=== PATIENT | female | born 1935 | race Hispanic/Latino ===

== ENCOUNTER 2016-11-27 08:00 | Inpatient (IN) | payer MEDICARE ==
[2016-11-24 11:41] LABS: Basophils % (Auto) 0.5 % (0.0-1.8); Eosinophils % (Auto) 1.5 % (0.0-4.3); Hematocrit 34.5 % (30.3-42.9); Hemoglobin 11.2 gm/dl (10.1-14.3); Mean Corpuscular HGB Conc 32 % (30-34); Mean Corpuscular Hemoglobin 28 pg (28-32); Mean Corpuscular Volume 87 fl (79-97); Platelet Count 208 K/mm3 (140-440); Red Blood Count 3.98 M/mm3 (3.65-5.03); Red Cell Distribution Width 13.4 % (13.2-15.2); White Blood Count 8.1 K/mm3 (4.5-11.0)
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
[2016-11-24 11:55] LABS: INR 0.82 (0.87-1.13)
[2016-11-24 11:57] LABS: Anion Gap 14 mmol/L; BUN/Creatinine Ratio 26.25; Blood Urea Nitrogen 21 mg/dL (7-17); Calcium 10.3 mg/dL (8.4-10.2); Carbon Dioxide 26 mmol/L (22-30); Chloride 103.3 mmol/L (98-107); Glucose 68 mg/dL (65-100); Potassium 4.4 mmol/L (3.6-5.0); Sodium 139 mmol/L (137-145)
--- NOTE | 2016-11-27 07:40 | Anesthesia Day of Surgery ---
Anesthesia Day of Surgery - Day of Surgery Patient Examined: Yes Patient H&P Reviewed: Yes Patient is NPO: Yes
[~2016-11-27 08:00] MED LIST: AMIDATE IV ONE; ANCEF/STERILE WATER 2 GM/20 ML 2 GM/20 ML SYRINGE IV NR; DIPRIVAN 10 MG/ML IV ONE; GELFOAM TP ONE; HEPARIN 10,000 UNITS/10 ML ONE; MARCAINE 0.5% INFILTRATI ONE; NACL 0.9% 100 ML ONE; NACL 0.9% 1000 ML 1,000 ML IV SCH; NACL 0.9% 500 ML 500 ML ONE; NACL BACTERIOSTATIC INFILTRATI ONE; NEO SYNEPHRINE/NS Syringe(OR USE) IV ONE; PAPAVERINE ONE; PEPCID PO NR; PROTAMINE SULFATE ONE; QUELICIN ONE; RIFADIN ONE; SUBLIMAZE ONE; THROMBIN (BOVINE) TP ONE; VERSED IV NR; XYLOCAINE 1% 20 mL ONE; XYLOCAINE 1% MPF 5 mL ONE; XYLOCAINE MPF 2% ONE; ZEMURON IV ONE
[2016-11-27] MEDS ORDERED: ePHEDrine SULFATE ONE (09:11)
[2016-11-27] MEDS ORDERED: ROBINUL ONE ×2 (09:14→10:53)
[2016-11-27] MEDS ORDERED: MARCAINE 0.5% INFILTRATI ONE ×2 (09:25→09:59)
[2016-11-27] MEDS ORDERED: DECADRON ONE (09:30)
[2016-11-27] MEDS ORDERED: ZOFRAN ONE (09:30)
[2016-11-27] MEDS ORDERED: RIFADIN 600 MG in NACL 0.9% 50 ML IR ONE (09:33)
[2016-11-27] MEDS ORDERED: HEPARIN 10,000 UNITS/10 ML 2,000 UNIT in NACL 0.9% 500 ML 500 ML IR ONE (09:33)
[2016-11-27] MEDS ORDERED: NACL 0.9% IR ONE (09:59)
[2016-11-27] MEDS ORDERED: NACL 0.9% 1000 ML 1,000 ML ONE (10:56)
--- NOTE | 2016-11-27 11:34 | Operative Report ---
Operative Report Operative Report: Date of procedure: 11/27/2016 Pre-operative diagnosis: Asymptomatic Left Carotid Artery Stenosis Post-operative diagnosis: Same Procedure(s): 1. Left Carotid Endarterectomy With Patch Angioplasty 2. Intraoperative Completion Duplex Surgeon: Sanjiv Ochoa MD Marine Machinist: None Anesthesia: General Endotracheal Anesthesia EBL: Minimal Findings: Patient with near occlusion of her internal carotid artery with an isolated plaque in the left internal carotid artery approximately 2-1/2 cm from the bifurcation. Specimen: Left Carotid Plaque Counts: Correct Complications: None Condition: Stable Indication: The patient is an 81-year-old female who was undergoing a CT scan of her neck for evaluation of her parathyroids. There was an incidental finding of a greater than 80% stenosis of left internal carotid artery. She was sent to me for evaluation. Although she had no symptoms given the degree of stenosis it was felt that she would benefit from a carotid endarterectomy. She had cardiac clearance was clear for the procedure. She was given the risks, benefits, and alternative procedures and consented to procedure. Description of Procedure: The patient was brought to the operating room and laid in supine position. After general endotracheal anesthesia was achieved the patient was placed in beachchair position with her head elevated and turned slightly to the right. The patient's neck and chest were prepped and draped in normal fashion. An oblique incision was then created along the anterior border of the sternocleidomastoid. The incision was then carried down to the facial vein using sharp dissection. The facial vein was then dissected out circumferentially, suture ligated and divided. The dissection was then carried down to the common carotid using sharp dissection. The common carotid artery was dissected out circumferentially taking care to avoid the vagus nerve which was identified and avoided. The artery was then controlled with a large vessel loop. The dissection was carried up along the external carotid and the superficial thyroid artery was identified dissected out circumferentially and controlled with a 2-0 silk. The external carotid was dissected out and controlled a small vessel loop. I then dissected out the internal carotid artery well above the plaque which was identified by a change in hue of the artery from yellow to blue and palpation of the artery over a right angle. I controlled the internal carotid artery with a small vessel and at this point the patient was systemically heparinized with heparin IV. Once the heparin had circulated for 3 minute I clamped the internal carotid artery followed by the common carotid and then the external Carotid artery. I created an arteriotomy extending from the common carotid into the internal carotid, well above the plaque, using an 11 blade and Sexton scissors. I then flashed the internal carotid artery to check for adequate backbleeding. Once ensure there was adequate backbleeding reclamped the artery and used a Kerby blade to dissect the plaque away from the artery. I used a right angle to continue the dissection of this plane from lateral to medial and then divided the plaque using Sexton scissors. I then trimmed the plaque proximally using Sexton and then teased the plaque away from the distal endpoint insuring that there were no areas of dissection or intimal flaps. These plaque forceps to remove all loose debris and then flushed the artery with heparinized saline. I then closed the artery using the Dacron patch and two 6-0 Prolenes in running fashion. Prior to completing the closure I flushed all arteries to remove all loose debris and then flushed the artery with heparinized saline. I then completed the closure in an flashed the internal carotid, reclamped and then removed the clamp from the common carotid followed by the external carotid and allowed any loose debris to flush into the external carotid. I then removed the clamp from the internal carotid artery. Hemostasis was achieved with repair sutures with 6-0 Prolene in interrupted fashion and a combination of direct pressure with Quick Clot. Once hemostasis was achieved I performed an intraoperative duplex that demonstrated no evidence of dissection and normalization of internal carotid velocity. I then anesthetized the wound with Exparel and closed in 2 layers using a 3-0 Vicryl in running in the deep dermal layer and a 4-0 Monocryl in running in the subcuticular layer and dressed it with the Surgiseal. The patient tolerated the procedure well all sponge needle and instrument counts were correct the patient was taken to the recovery area in stable condition.
[2016-11-27] MEDS ORDERED: D50W (25GM) Syringe IV PRN (11:35)
[2016-11-27] MEDS ORDERED: NORCO 5/325 PO PRN (11:35)
[2016-11-27] MEDS ORDERED: MORPHINE IV PRN (11:35)
[2016-11-27] MEDS ORDERED: NIPRIDE 50 MG in D5W 248 ML IV SCH (12:00)
[2016-11-27] MEDS ORDERED: NACL 0.9% 1000 ML 1,000 ML IV SCH (12:00)
[2016-11-27] MEDS ORDERED: INTROPIN DRIP 800 MG/D5W 250 ML 800 MG/250 ML BAG IV SCH (12:00)
[2016-11-27] MEDS ORDERED: DILAUDID IV PRN (12:10)
[2016-11-27] MEDS ORDERED: DILAUDID ONE (12:18)
--- NOTE | 2016-11-27 14:04 | Admit Criteria Form ---
Admission Criteria Documentation: AMBULATORY SURGERY EXCEPTION CRITERIA Ambulatory Surgery Exception Criteria ( Place 'X' for any and all applicable criteria): Surgery or procedure performed on ambulatory basis may require inpatient stay for[A] ANY ONE of the following(1)(2)(3)(4)(5)(6)(7)(8)(9): [X] I. A preoperative situation, condition, or finding that warrants inpatient stay as indicated by ANY ONE of the following: [] a) Inpatient care needed because of severity of a disease or condition rather than the surgery (eg, severe cardiac or respiratory disease, severe infection) (15) (16 ) (17) (18) [] b) Emergent procedure (eg, angioplasty for acute ischemia)(19) [] c) Complex surgical approach or situation as indicated by ANY ONE of the following(3): [] i) Open approach needed instead of usual endoscopic, transcatheter, or other less invasive procedure [] ii) Difficult approach because of previous operation [] iii) Airway monitoring required after open neck procedures(20)(21) [] iv) Large mass requiring unusually extensive dissection [] v) Additional complicating feature requiring inpatient care (eg, drain management)(22(23): [X] d) Major surgery in a pt with high anesthetic risk as indicated by ANY ONE of the following (2)(3)(5)(7)(8): [X] i) ASA risk class III or higher (severe systemic disease impairing function) [D] [] ii) Advanced age (eg, older than 85 years)(14)(24) [] iii) Symptomatic heart failure(25) [] iv) Symptomatic asthma or COPD(8)(21) [] v) Morbid obesity with hemodynamic or respiratory problems(20)( 21)(26)(27) [] vi) Obstructive sleep apnea(20)(21) [] vii) Former premature infants who are younger than 60 weeks [] viii) High risk for severe postoperative abnormalities (eg, severe postoperative hypocalcemia after parathyroidectomy for severe hyperparathyroidism)(27)( 28) [] ix) Unstable angina(25) [] e) Drug-related risk requiring inpatient stay as indicated by ANY ONE of the following(5)(10)(14)(32)(33) [] i) Procedure requires discontinuing drugs or other therapy (eg , antiarrhythmic medication, antiseizure medication), which necessitates inpatient observation or treatment.(18)(31) [] ii) Major surgery and high risk drug use as indicated by ANY ONE of the following: [] 1) Active abuse of cocaine or similar drug [] 2) Monoamine oxidase inhibitor use [] 3) Other drug identified as posing risk [] f) Inadequate outpatient care situation as indicated by ANY ONE of the following(5)(10)(14)(32)(33) [] i) Patient lives remote from medical facility and procedure has urgent complication potential, and temporary nearby residence cannot be arranged [] ii) Patient will have postprocedure incapacitation and inadequate assistance at home, or alternative level of care cannot be arranged. [] iii) Patient will have long general anesthesia or procedure side effect resolution time, and competent person to stay with patient on first postoperative night at home or alternative level of care cannot be arranged. []iv) Other inadequate outpatient situation that cannot be handled by other means [] II. A perioperative event, condition, or finding that warrants inpatient stay as indicated by ANY ONE of the following (1)(2)(3): [] a) Inadequate physiologic recovery: cardiovascular, respiratory, or hemodynamic status not normal or near preoperative baseline(18) [] b) Hemodynamic instability [] c) Patient not alert with near normal or baseline mental status [] d) Temperature not normal or as expected and not appropriate for outpatient treatment of condition [] e) Ambulatory or appropriate activity level status not yet achieved post procedure [E](34)(35)(36) [] f) Operative site not appropriate (eg, unexpected or excessive drainage or bleeding) [] g) Postoperative effects not resolved or adequately managed (eg, significant pain or vomiting not appropriate for outpatient or next level of care)(10)(12) [] h) Complicating features requiring inpatient care as indicated by ANY ONE of the following(37): [] i) Severe complications of procedure (eg, bowel injury, airway compromise, vascular injury,severe hemorrhage) [] ii) Extensive (eg, dissection far beyond usual scope of procedure ) or prolonged (eg, 120 minutes beyond usual) surgery needed requiring inpatient postoperative care [] iii) Conversion to an open or complex procedure that requires inpatient care (eg, open vs laparoscopic cholecystectomy, abdominal vs vaginal hysterectomy)(38) [] iv) Comorbid condition or test result identified during or post procedure that requires inpatient care (7) [] v) Malignant hyperthermia(30) [] vi) Other complicating feature requiring inpatient care(22)(23) Inpatient stay may be needed until ALL of the following are present (1)(2)(3)(4) (5)(6)(10)(14)(33)(40): []a) Physiologic recovery: cardiovascular, respiratory, and hemodynamic status normal or near preoperative baseline []b) Hemodynamic stability []c) Patient alert, with near normal or baseline mental status []d) Temperature appropriate: patient afebrile or temperature appropriate for outpt treatment of condition []e) Activity level appropriate: ambulatory or appropriate activity level post procedure []f) Operative site appropriate as indicated by ALL of the following: []i) Site dry or with expected drainage []ii) Any blood noted is as expected for procedure. []g) Postoperative effects resolved or managed as indicated by ALL of the following: []i) Pain management appropriate for outpatient (or next level of) care(10) []ii) Minimal nausea and vomiting: if present, successfully treated with oral medication(12) []iii) Headache, dizziness, or drowsiness (if present) are mild. []h) Voiding status acceptable as indicated by ANY ONE of the following: []i) Voiding spontaneously []ii) No voiding but instructions given for follow-up in 6 to 8 hours []iii) Urinary catheter in place, and instructions given for follow-up []i) Complicating features requiring inpatient care manageable at a lower level of care(37) []j) Comorbid conditions manageable at a lower level of care(37) The original [employer] content created by [employer] has been revised. The portions of the content which have been revised are identified through the use of italic text or in bold, and [facility] [employer] has neither reviewed nor approved the modified material. All other unmodified content is copyright [employer]. Please see references footnoted in the original [employer] edition 2016 Admission Criteria Met: Yes
[2016-11-27] MEDS: ANCEF/NS 1 GM/50 ML 1 GM/50 ML BAG IV SCH ×2 (15:30→23:43)
[2016-11-27] MEDS: NOVOLOG SUB-Q SCH ×2 (21:22→21:30)
[2016-11-27] MEDS: GLUCOPHAGE PO SCH (21:30)
[2016-11-27] MEDS ORDERED: NON-FORMULARY (Omeprazole [Omeprazole] 20 MG) PO SCH (22:00)
[2016-11-27] MEDS ORDERED: LEVEMIR SUB-Q SCH (22:00)
[2016-11-27] MEDS ORDERED: NON-FORMULARY (Insulin Glargine 20 UNIT) SUB-Q SCH (22:00)
[2016-11-27] MEDS ORDERED: PROTONIX PO SCH (22:00)
[2016-11-27] MEDS: COLACE PO SCH (23:31)
[2016-11-28] MEDS ORDERED: NORCO 5/325 ONE (02:00)
[2016-11-28] MEDS: NOVOLOG SUB-Q SCH ×2 (08:33→12:11)
[2016-11-28] MEDS: GLUCOPHAGE PO SCH (08:34)
--- NOTE | 2016-11-28 09:23 | Progress Note ---
Subjective Date of service: 11/28/16 Principal diagnosis: carotid stenosis left Interval history: Pt seen on post-op day 1, sitting in chair at bedside, not yet ambulating, comfortable, satisfied with anesthesia provided. Objective - Constitutional Vitals: Vital Signs - 12hr 11/27/16 11/27/16 11/28/16 22:00 23:00 00:00 Temperature 99.0 F 98.7 F 98.5 F Pulse Rate 93 H 80 84 Pulse Rate [ Left] Respiratory 16 16 15 Rate Blood Pressure 129/56 115/60 118/56 O2 Sat by Pulse 97 99 97 Oximetry 11/28/16 11/28/16 11/28/16 01:00 01:06 01:11 Temperature 97.8 F Pulse Rate 91 H 89 Pulse Rate [ Left] Respiratory 16 14 Rate Blood Pressure 127/60 127/60 O2 Sat by Pulse 97 100 100 Oximetry 11/28/16 11/28/16 11/28/16 01:21 01:31 01:41 Temperature Pulse Rate 99 H 99 H 105 H Pulse Rate [ Left] Respiratory 19 19 21 Rate Blood Pressure 127/60 127/60 127/60 O2 Sat by Pulse Oximetry 11/28/16 11/28/16 11/28/16 01:51 02:00 02:11 Temperature 97.0 F L Pulse Rate 88 93 H 88 Pulse Rate [ Left] Respiratory 17 14 17 Rate Blood Pressure 127/60 106/42 127/60 O2 Sat by Pulse 97 98 98 Oximetry 11/28/16 11/28/16 11/28/16 02:21 02:31 02:41 Temperature Pulse Rate 92 H 93 H 89 Pulse Rate [ Left] Respiratory 17 15 16 Rate Blood Pressure 127/60 127/60 127/60 O2 Sat by Pulse 99 100 97 Oximetry 11/28/16 11/28/16 11/28/16 02:51 03:00 03:11 Temperature Pulse Rate 90 92 H 91 H Pulse Rate [ Left] Respiratory 15 15 16 Rate Blood Pressure 127/60 104/46 104/46 O2 Sat by Pulse 98 98 99 Oximetry 11/28/16 11/28/16 11/28/16 03:14 03:21 03:31 Temperature Pulse Rate 89 86 87 Pulse Rate [ Left] Respiratory 17 16 12 Rate Blood Pressure 104/46 104/46 104/46 O2 Sat by Pulse 97 97 98 Oximetry 11/28/16 11/28/16 11/28/16 03:41 03:51 04:00 Temperature Pulse Rate 86 87 86 Pulse Rate [ Left] Respiratory 14 15 16 Rate Blood Pressure 104/46 104/46 104/46 O2 Sat by Pulse 98 97 96 Oximetry 11/28/16 11/28/16 11/28/16 04:11 04:21 04:27 Temperature 97.8 F Pulse Rate 82 85 88 Pulse Rate [ Left] Respiratory 16 9 L 16 Rate Blood Pressure 101/45 101/45 101/45 O2 Sat by Pulse 98 97 97 Oximetry 11/28/16 11/28/16 11/28/16 04:30 04:31 04:41 Temperature Pulse Rate 88 87 Pulse Rate [ 87 Left] Respiratory 14 15 11 L Rate Blood Pressure 101/45 101/45 O2 Sat by Pulse 100 97 97 Oximetry 11/28/16 11/28/16 11/28/16 04:51 05:00 05:11 Temperature Pulse Rate 84 84 85 Pulse Rate [ Left] Respiratory 14 13 9 L Rate Blood Pressure 101/45 106/47 106/47 O2 Sat by Pulse 97 97 97 Oximetry 11/28/16 11/28/16 11/28/16 05:21 05:31 05:41 Temperature Pulse Rate 84 84 87 Pulse Rate [ Left] Respiratory 13 16 15 Rate Blood Pressure 101/45 101/45 101/45 O2 Sat by Pulse 96 94 91 Oximetry 11/28/16 11/28/16 11/28/16 05:51 06:00 06:11 Temperature Pulse Rate 93 H 90 81 Pulse Rate [ Left] Respiratory 14 15 14 Rate Blood Pressure 106/47 112/48 112/48 O2 Sat by Pulse 100 100 99 Oximetry 11/28/16 11/28/16 11/28/16 06:21 06:31 06:38 Temperature 97.8 F Pulse Rate 83 80 Pulse Rate [ Left] Respiratory 20 16 Rate Blood Pressure 112/48 112/48 O2 Sat by Pulse 100 98 Oximetry 11/28/16 11/28/16 11/28/16 06:41 06:51 07:09 Temperature Pulse Rate 84 86 82 Pulse Rate [ Left] Respiratory 15 13 23 Rate Blood Pressure 112/48 112/48 O2 Sat by Pulse 92 100 96 Oximetry 11/28/16 11/28/16 11/28/16 07:11 07:21 07:31 Temperature Pulse Rate 79 70 82 Pulse Rate [ Left] Respiratory 19 16 14 Rate Blood Pressure 106/38 106/38 O2 Sat by Pulse 100 93 100 Oximetry 11/28/16 11/28/16 11/28/16 07:41 07:51 08:01 Temperature Pulse Rate 82 88 92 H Pulse Rate [ Left] Respiratory 12 13 12 Rate Blood Pressure 106/38 106/38 135/116 O2 Sat by Pulse 100 100 Oximetry - Labs CBC & Chem 7: 11/24/16 11:20 11/24/16 11:20 Labs: Abnormal lab results 11/27/16 11/27/16 11/27/16 Range/Units 11:34 16:50 21:12 POC Glucose 107 H 151 H 194 H (70-105) 11/28/16 Range/Units 05:51 POC Glucose 152 H (70-105)
--- NOTE | 2016-11-28 09:28 | Vascular Lab Report ---
INTRAOPERATIVE CAROTID ARTERY DUPLEX Reason for exam: Completion of carotid endarterectomy Comments on the left: The common and internal carotid arteries are patent without evidence of intraluminal irregularities. Flow velocities appear to be appropriate. No obvious technical defects at the endarterectomy site appreciated. Impression: No obvious technical imperfections at the endarterectomy site.
[2016-11-28] MEDS ORDERED: COZAAR PO SCH (10:00)
[2016-11-28] MEDS ORDERED: PLAVIX PO SCH (10:00)
[2016-11-28] MEDS ORDERED: EFFEXOR XR PO SCH (10:00)
[2016-11-28] MEDS: COLACE PO SCH (10:02)
--- NOTE | 2016-11-28 11:06 | Progress Note ---
Assessment and Plan Pt doing well post-op. Check RA pulse ox if okay will d/c O2. Increase act. if tolerated then will d/c home this afternoon. D/c instructions given to the pt at the bedside. Rx Plavix and [place]. F/u 2 wks. - Patient Problems (1) Carotid stenosis Current Visit: Yes Status: Acute Qualifiers: Laterality: L Subjective Date of service: 11/28/16 Principal diagnosis: carotid stenosis left Interval history: Pt sleeping, but easily arousable. C/o mild incisional discomfort and mild throat irritation (likely from ET tube). OOB to BR with difficulty. Coughs occasional (unchanged from prior to surgery). Denies difficulty swallowing. Objective - Constitutional Vitals: Vital Signs - 12hr 11/27/16 11/28/16 11/28/16 23:00 00:00 01:00 Temperature 98.7 F 98.5 F 97.8 F Pulse Rate 80 84 91 H Pulse Rate [ Left] Respiratory 16 15 16 Rate Blood Pressure 115/60 118/56 127/60 O2 Sat by Pulse 99 97 97 Oximetry 11/28/16 11/28/16 11/28/16 01:06 01:11 01:21 Temperature Pulse Rate 89 99 H Pulse Rate [ Left] Respiratory 14 19 Rate Blood Pressure 127/60 127/60 O2 Sat by Pulse 100 100 Oximetry 11/28/16 11/28/16 11/28/16 01:31 01:41 01:51 Temperature Pulse Rate 99 H 105 H 88 Pulse Rate [ Left] Respiratory 19 21 17 Rate Blood Pressure 127/60 127/60 127/60 O2 Sat by Pulse 97 Oximetry 11/28/16 11/28/16 11/28/16 02:00 02:11 02:21 Temperature 97.0 F L Pulse Rate 93 H 88 92 H Pulse Rate [ Left] Respiratory 14 17 17 Rate Blood Pressure 106/42 127/60 127/60 O2 Sat by Pulse 98 98 99 Oximetry 11/28/16 11/28/16 11/28/16 02:31 02:41 02:51 Temperature Pulse Rate 93 H 89 90 Pulse Rate [ Left] Respiratory 15 16 15 Rate Blood Pressure 127/60 127/60 127/60 O2 Sat by Pulse 100 97 98 Oximetry 11/28/16 11/28/16 11/28/16 03:00 03:11 03:14 Temperature Pulse Rate 92 H 91 H 89 Pulse Rate [ Left] Respiratory 15 16 17 Rate Blood Pressure 104/46 104/46 104/46 O2 Sat by Pulse 98 99 97 Oximetry 11/28/16 11/28/16 11/28/16 03:21 03:31 03:41 Temperature Pulse Rate 86 87 86 Pulse Rate [ Left] Respiratory 16 12 14 Rate Blood Pressure 104/46 104/46 104/46 O2 Sat by Pulse 97 98 98 Oximetry 11/28/16 11/28/16 11/28/16 03:51 04:00 04:11 Temperature Pulse Rate 87 86 82 Pulse Rate [ Left] Respiratory 15 16 16 Rate Blood Pressure 104/46 104/46 101/45 O2 Sat by Pulse 97 96 98 Oximetry 11/28/16 11/28/16 11/28/16 04:21 04:27 04:30 Temperature 97.8 F Pulse Rate 85 88 Pulse Rate [ 87 Left] Respiratory 9 L 16 14 Rate Blood Pressure 101/45 101/45 O2 Sat by Pulse 97 97 100 Oximetry 11/28/16 11/28/16 11/28/16 04:31 04:41 04:51 Temperature Pulse Rate 88 87 84 Pulse Rate [ Left] Respiratory 15 11 L 14 Rate Blood Pressure 101/45 101/45 101/45 O2 Sat by Pulse 97 97 97 Oximetry 11/28/16 11/28/16 11/28/16 05:00 05:11 05:21 Temperature Pulse Rate 84 85 84 Pulse Rate [ Left] Respiratory 13 9 L 13 Rate Blood Pressure 106/47 106/47 101/45 O2 Sat by Pulse 97 97 96 Oximetry 11/28/16 11/28/16 11/28/16 05:31 05:41 05:51 Temperature Pulse Rate 84 87 93 H Pulse Rate [ Left] Respiratory 16 15 14 Rate Blood Pressure 101/45 101/45 106/47 O2 Sat by Pulse 94 91 100 Oximetry 11/28/16 11/28/16 11/28/16 06:00 06:11 06:21 Temperature Pulse Rate 90 81 83 Pulse Rate [ Left] Respiratory 15 14 20 Rate Blood Pressure 112/48 112/48 112/48 O2 Sat by Pulse 100 99 100 Oximetry 11/28/16 11/28/16 11/28/16 06:31 06:38 06:41 Temperature 97.8 F Pulse Rate 80 84 Pulse Rate [ Left] Respiratory 16 15 Rate Blood Pressure 112/48 112/48 O2 Sat by Pulse 98 92 Oximetry 11/28/16 11/28/16 11/28/16 06:51 07:09 07:11 Temperature Pulse Rate 86 82 79 Pulse Rate [ Left] Respiratory 13 23 19 Rate Blood Pressure 112/48 O2 Sat by Pulse 100 96 100 Oximetry 11/28/16 11/28/16 11/28/16 07:21 07:31 07:41 Temperature Pulse Rate 70 82 82 Pulse Rate [ Left] Respiratory 16 14 12 Rate Blood Pressure 106/38 106/38 106/38 O2 Sat by Pulse 93 100 100 Oximetry 11/28/16 11/28/16 11/28/16 07:51 08:01 08:11 Temperature Pulse Rate 88 92 H 78 Pulse Rate [ Left] Respiratory 13 12 13 Rate Blood Pressure 106/38 135/116 135/116 O2 Sat by Pulse 100 100 Oximetry 11/28/16 11/28/16 11/28/16 08:21 08:31 08:41 Temperature Pulse Rate 73 72 69 Pulse Rate [ Left] Respiratory 16 11 L 14 Rate Blood Pressure 135/116 135/116 135/116 O2 Sat by Pulse 100 100 100 Oximetry 11/28/16 11/28/16 11/28/16 08:51 09:00 09:17 Temperature Pulse Rate 71 79 78 Pulse Rate [ Left] Respiratory 15 16 13 Rate Blood Pressure 135/116 135/116 O2 Sat by Pulse 100 93 Oximetry 11/28/16 11/28/16 11/28/16 09:21 09:31 09:41 Temperature Pulse Rate 68 74 73 Pulse Rate [ Left] Respiratory 15 12 17 Rate Blood Pressure 105/48 105/48 105/48 O2 Sat by Pulse 100 100 100 Oximetry 11/28/16 11/28/16 11/28/16 09:51 10:00 10:02 Temperature Pulse Rate 70 70 84 Pulse Rate [ Left] Respiratory 11 L 15 Rate Blood Pressure 105/48 96/57 105/48 O2 Sat by Pulse 100 100 Oximetry General appearance: Present: no acute distress - EENT Eyes: EOM intact ENT: hearing intact - Neck Neck: supple (Incision intact without erythema or drainage. Scant if any appreciable swelling. ) - Respiratory Respiratory effort: normal (unlabored at rest on RA) Extremities: no ischemia - Neurologic Neurologic: no focal deficits (moves all 4 ext., tongue midline, speech clr) - Psychiatric Psychiatric: appropriate mood/affect, intact judgment & insight, memory intact, cooperative - Labs CBC & Chem 7: 11/24/16 11:20 11/24/16 11:20 Labs: Abnormal lab results 11/27/16 11/27/16 11/27/16 Range/Units 11:34 16:50 21:12 POC Glucose 107 H 151 H 194 H (70-105) 11/28/16 Range/Units 05:51 POC Glucose 152 H (70-105)
--- NOTE | 2016-11-28 13:50 | Short Stay Summary ---
Short Stay Documentation - History H&P: obtained from office - Allergies and Medications Current Medications: Allergies fish derived Allergy (Verified 11/23/16 12:57) hives, rash morphine Allergy (Verified 11/23/16 12:57) Rash shellfish derived Allergy (Verified 11/23/16 12:57) hives, rash Home Medications Medication Instructions Recorded Confirmed Last Taken Type Insulin Glargine [Lantus] 20 unit SUB-Q QHS 11/24/16 11/27/16 11/25/16 History Losartan [Cozaar] 50 mg PO QDAY 11/24/16 11/27/16 11/27/16 05:00 History Omeprazole 20 mg PO HS 11/24/16 11/27/16 11/25/16 History Venlafaxine HCl [Venlafaxin ER] 75 mg PO QDAY 11/24/16 11/27/16 11/25/16 History metFORMIN [Glucophage] 500 mg PO BID 11/24/16 11/27/16 11/25/16 History HYDROcodone/APAP 7.5-325 [[place] 1 each PO Q6HR PRN #60 tablet 11/28/16 Unknown Rx 7.5/325] Active Medications Acetaminophen/Hydrocodone Bitart ([place] 5/325) 1 each PO Q6H PRN PRN Reason: Pain, Moderate (4-6) Last Admin: 11/27/16 17:26 Dose: 1 each Clopidogrel Bisulfate (Plavix) 75 mg PO QDAY LUZ MARINA Last Admin: 11/28/16 10:02 Dose: 75 mg Dextrose (D50w (25gm)) 50 ml IV PRN PRN PRN Reason: Hypoglycemia Docusate Sodium (Colace) 100 mg PO BID LUZ MARINA Last Admin: 11/28/16 10:02 Dose: 100 mg Dopamine HCl/Dextrose (Intropin Drip 800 Mg/D5w 250 Ml) 800 mg in 250 mls @ 3.113 mls/hr IV TITR LUZ MARINA; 2 MCG/KG/MIN PRN Reason: Protocol Sodium Nitroprusside 50 mg/ (Dextrose) 250 mls @ 6.22 mls/hr IV TITR LUZ MARINA; 0.25 MCG/KG/MIN PRN Reason: Protocol Sodium Chloride (Nacl 0.9% 1000 Ml) 1,000 mls @ 100 mls/hr IV DIRECT LUZ MARINA Last Admin: 11/27/16 23:36 Dose: 100 mls/hr Insulin Aspart (Novolog) 0 units SUB-Q ACHS [facility] PRN Reason: Protocol Last Admin: 11/28/16 12:11 Dose: Not Given Insulin Detemir (Levemir) 20 units SUB-Q QHS [facility] Last Admin: 11/27/16 23:32 Dose: Not Given Losartan Potassium (Cozaar) 50 mg PO QDAY [facility] Last Admin: 11/28/16 10:02 Dose: 50 mg Metformin HCl (Glucophage) 500 mg PO BIDDIAB [facility] Last Admin: 11/28/16 08:34 Dose: 500 mg Pantoprazole Sodium (Protonix) 20 mg PO QHS [facility] Last Admin: 11/27/16 23:00 Dose: 20 mg Venlafaxine HCl (Effexor Xr) 75 mg PO QDAY [facility] Last Admin: 11/28/16 10:02 Dose: 75 mg - Physical exam Extremities: no ischemia - Brief post op/procedure progress note Procedure: Operative Report Operative Report: Date of procedure: 11/27/2016 Pre-operative diagnosis: Asymptomatic Left Carotid Artery Stenosis Post-operative diagnosis: Same Procedure(s): 1. Left Carotid Endarterectomy With Patch Angioplasty 2. Intraoperative Completion Duplex Surgeon: Sanjiv Ochoa MD Acid Regenerator: None Anesthesia: General Endotracheal Anesthesia EBL: Minimal Findings: Patient with near occlusion of her internal carotid artery with an isolated plaque in the left internal carotid artery approximately 2-1/2 cm from the bifurcation. Specimen: Left Carotid Plaque Counts: Correct Complications: None Condition: Stable Indication: The patient is an 81-year-old female who was undergoing a CT scan of her neck for evaluation of her parathyroids. There was an incidental finding of a greater than 80% stenosis of left internal carotid artery. She was sent to [facility] for evaluation. Although she had no symptoms given the degree of stenosis it was felt that she would benefit from a carotid endarterectomy. She had cardiac clearance was clear for the procedure. She was given the risks, benefits, and alternative procedures and consented to procedure. - Disposition Disposition: [id number] TO HOME OR SELFCARE - Discharge Diagnoses (1) Carotid stenosis Status: Acute Qualifiers: Laterality: L Short Stay Discharge Plan Activity: advance as tolerated Diet: diabetic Wound: keep clean and dry Follow up with: SANJIV OCHOA MD [Staff Physician] - 14 Days Prescriptions: Clopidogrel [Plavix] 75 mg PO QDAY #30 tablet HYDROcodone/APAP 7.5-325 [[place] 7.5/325] 1 each PO Q6HR PRN #60 tablet PRN Reason: Pain
[2016-11-28 15:37] VITALS: BP 127/63
== END 2016-11-28 15:30 | disposition home or self-care (01) | DRG 39 ==
LOC: CC1 08:43
PROVIDERS: ADMIT Surgery Vascular Surgery; ATTEND Surgery Vascular Surgery
PROC: 03CL0ZZ Extirpation of Matter from Left Internal Carotid Artery, Open Approach (ICD-10-PCS; principal; 2016-11-27)
PROC: 03CN0ZZ Extirpation of Matter from Left External Carotid Artery, Open Approach (ICD-10-PCS; 2016-11-27)
PROC: 03UL0JZ Supplement Left Internal Carotid Artery with Synthetic Substitute, Open Approach (ICD-10-PCS; 2016-11-27)
DX: I65.22 Occlusion and stenosis of left carotid artery (principal); E11.9 Type 2 diabetes mellitus without complications; I10 Essential (primary) hypertension; Z96.659 Presence of unspecified artificial knee joint; Z88.6 Allergy status to analgesic agent; Z91.013 Allergy to seafood; Z80.9 Family history of malignant neoplasm, unspecified; Z83.3 Family history of diabetes mellitus; Z82.49 Family history of ischemic heart disease and other diseases of the circulatory system
CPT/HCPCS: 36415; 36620; 80048; 82962; 85025; 85610; 88304; 88311; A4649; C1768; J0330; J0690; J1100; J1170; J1644; J1815; J1818; J2250; J2370; J2405; J2440; J2704; J2720; J3010; J3490; J7030; J7040